=== PATIENT | male | born 1960 | race Caucasian/White ===

== ENCOUNTER 2018-04-30 11:09 | Emergency (ER) | payer OTHER ==
[2018-04-30 11:26] VITALS: RESP 18
[2018-04-30] MEDS ORDERED: DIPH,PERTUS(ACELL)TETVAC-LF 0.5 ML VIAL IM ONE (11:47)
[2018-04-30] MEDS ORDERED: LIDOCAINE 1% INJ 10MG/ML (20 ML MDV) SQ ONE (11:47)
[2018-04-30] MEDS ORDERED: AMOXIC-POT CLAV 875MG STARTER 2 EACH TABLET PO STA (11:49)
--- NOTE | 2018-04-30 11:49 | ED ---
Animal Bite HPI - General Chief Complaint: Animal Bite Stated Complaint: Dog Bite Time Seen by Provider: 04/30/18 11:41 Source: patient Mode of arrival: ambulatory Limitations: no limitations - History of Present Illness Initial Comments: 57-year-old male patient presents to the emergency department today for evaluation after being bit by a dog. Patient states he was jogging and was passing by a couple walking their dog. States that the dog came close to him and then bit his right forearm. Patient did have a dressing applied rather immediately and did get bleeding under control. He denies any difficulty with range of motion of the wrist. Denies any significant pain. He is unsure when his last tetanus vaccine was given. States that the owners of the dog reported that the dog's immunizations are up-to-date. Denies any other injuries. Patient denies any headache, neck pain, back pain, chest pain, shortness of breath, dizziness, weakness, abdominal pain, nausea, vomiting, or difficulties with bowel movements or urination. - Related Data Previous Rx's Medication Instructions Recorded Amoxic-Pot Clav 875-125Mg 1 tab PO Q12HR #20 tablet 04/30/18 [Augmentin 875-125] Allergies Allergy/AdvReac Type Severity Reaction Status Date / Time No Known Allergies Allergy Verified 04/30/18 11:22 Review of Systems ROS Statement: Those systems with pertinent positive or pertinent negative responses have been documented in the HPI. ROS Other: All systems not noted in ROS Statement are negative. Past Medical History Past Medical History: No Reported History History of Any Multi-Drug Resistant Organisms: None Reported Past Surgical History: No Surgical Hx Reported Past Psychological History: No Psychological Hx Reported Smoking Status: Never smoker Past Alcohol Use History: None Reported Past Drug Use History: None Reported General Exam Limitations: no limitations General appearance: alert, in no apparent distress, other (This is a well- developed, well-nourished adult male patient in no acute distress. Vital signs upon presentation are temperature 97.9F, pulse 50, respirations 18, blood pressure 130/85, pulse ox 98% on room air.) Eye exam: Present: normal appearance, PERRL, EOMI. Absent: scleral icterus, conjunctival injection, periorbital swelling Respiratory exam: Present: normal lung sounds bilaterally. Absent: respiratory distress, wheezes, rales, rhonchi, stridor Cardiovascular Exam: Present: regular rate, normal rhythm, normal heart sounds. Absent: systolic murmur, diastolic murmur, rubs, gallop, clicks Extremities exam: Present: full ROM, normal capillary refill, other (Patient has 2 lacerations to the dorsal aspect of the right forearm. Each measure approximately 4-5 cm. Remainder of skin is pink, warm, and dry. Cap refills less than 3 seconds. Radial pulses are 2+ and equal bilaterally.). Absent: normal inspection, tenderness, pedal edema, joint swelling, calf tenderness Neurological exam: Present: alert, oriented X3, CN II-XII intact Psychiatric exam: Present: normal affect, normal mood Skin exam: Present: warm, dry, intact, normal color. Absent: rash Course Vital Signs 04/30/18 04/30/18 11:23 13:39 Temperature 97.9 F 98.1 F Pulse Rate 50 L 47 L Respiratory 18 18 Rate Blood Pressure 130/85 150/83 O2 Sat by Pulse 98 100 Oximetry Procedures - Laceration Laceration #1 Consent Obtained: verbal consent Time Out Performed: Yes Indication: laceration Site: upper extremity (Radial aspect of right forearm) Size (cm): 6 Description: linear Depth: simple, single layer Anesthetic Used: lidocaine 1% Anesthesia Technique: local infiltration Amount (mls): 5 Pre-repair: irrigated extensively Type of Sutures: nylon Size of Sutures: 5-0 Number of Sutures: 6 Technique: simple, interrupted Patient Tolerated Procedure: well, no complications Laceration #2 Consent Obtained: verbal consent Time Out Performed: Yes Indication: laceration Site: upper extremity (Ulnar aspect of right forearm) Size (cm): 5 Description: linear Depth: simple, single layer Anesthetic Used: lidocaine 1% Anesthesia Technique: local infiltration Amount (mls): 5 Pre-repair: irrigated extensively Type of Sutures: nylon Size of Sutures: 5-0 Number of Sutures: 5 Technique: simple, interrupted Patient Tolerated Procedure: well, no complications Medical Decision Making - Medical Decision Making 57-year-old male patient presented to the emergency department today for evaluation of lacerations to the right forearm after a dog bite. Physical examination did reveal 2 lacerations 15 cm 16 cm to the forearm. His are very superficial with minimal visualization of the subcutaneous fat. No tenderness injury. Patient has good range of motion good strength in the hand. Neurovascular status is intact. X-ray was negative for any acute abnormalities. Lacerations were repaired as documented, these were loosely approximated with sutures due to the gaping nature of the wounds. Patient did receive tetanus vaccine today. He is started on Augmentin. The patient denied need for pain medications. We did discuss signs or symptoms of infection, return parameters, and follow-up care. Sutures should be removed in 7 days. Patient verbalizes understanding and agrees with this plan. - Radiology Data Radiology results: report reviewed, image reviewed 2 views of the right forearm findings of no fracture, dislocation, or radiopaque foreign body. There is an olecranon spur present. Impression by Dr. Wolff shows no acute osseous lesion. Disposition Clinical Impression: Dog bite, Laceration of right forearm Disposition: HOME SELF-CARE Condition: Good Instructions: Animal Bite (ED), Care For Your Stitches (ED), Laceration (ED) Additional Instructions: Keep wound clean and dry. Do not submerge in water. Monitor for signs or symptoms of infection including but not limited to redness, swelling, drainage, streaking up the arm, fever, or chills. Complete antibiotic prescription in full. Return in 7 days to have your stitches removed. Follow-up with your primary care physician for recheck in 1-2 days. Return here immediately for any new, worsening, or concerning symptoms. Prescriptions: Amoxic-Pot Clav 875-125Mg [Augmentin 875-125] 1 tab PO Q12HR #20 tablet Is patient prescribed a controlled substance at d/c from ED?: No Referrals: Nonstaff,Physician [Primary Care Provider] - 1-2 days Time of Disposition: 13:20
--- NOTE | 2018-04-30 12:20 | XR ---
EXAMINATION TYPE: XR forearm RT , 2 VIEWS DATE OF EXAM ORDERED: 04/30/2018 HISTORY: Pain. COMPARISON: None. FINDINGS: No fracture, dislocation or radiopaque foreign body is seen. There is an olecranon spur pr esent. IMPRESSION: NO ACUTE OSSEOUS LESION.
[2018-04-30 13:41] VITALS: BP 150/83; PULSE 47; TEMP 98.1
== END 2018-04-30 13:40 | disposition home or self-care (01) ==
LOC: EC 11:09
DX: S51.811A Laceration without foreign body of right forearm, initial encounter (principal); Z23 Encounter for immunization; W54.0XXA Bitten by dog, initial encounter; Y93.K1 Activity, walking an animal
CPT/HCPCS: 73090; 90715; 99283; 90471; 12004; J2001